=== PATIENT | female | born 1995 | race African-American/Black ===

== ENCOUNTER 2017-01-21 10:24 | Outpatient (CLI) | payer MEDICAID ==
--- NOTE | 2017-01-21 11:33 | L&D Progress Notes ---
PROGRESS NOTES Datetime Report Generated by CPN: 01/21/2017 11:33 PROGRESS NOTE Comment: 21 yo presents with hip and pubic pain EDC 01/26/17 EGA 39 weeks unable to retrieve [facility] records at this time per pt - IUGR is supposed to be doing biweekly NST history of asthma/ smoking daily THC use- reports quitting with noncompliant FHTs reactive abdomen nontender no ctxs noted/ mild irritability +symphis pubic and hip pain precautions reviewed advised pt to continue regular appts.- reports difficulty with transportation/ easier to come to [facility] discussed d/c home rtc this week FETUS A Monitoring: External US Variability: Moderate 6-25bpm Accelerations: 15X15 : 39.2 SIGNATURE SIGNATURE: [id number] Assignment: Naveed Bocanegra MD Signature: with User ID: [email or web address] : with User ID: [email or web address]
[2017-01-21 11:48] LABS: APPEARANCE,URINE SLIGHTLY-CLOUDY; BILIRUBIN,URINE NEGATIVE (NEGATIVE); GLUCOSE, URINE NEGATIVE (NEGATIVE); KETONES,URINE NEGATIVE (NEGATIVE); LEUKOCYTE ESTERASE,URINE TRACE (NEGATIVE); NITRITE,URINE NEGATIVE (NEGATIVE); PROTEIN,URINE NEGATIVE (NEGATIVE); URINE SPECIFIC GRAVITY 1.013
[2017-01-21 12:06] LABS: URINE BARBITURATES SCREEN NEGATIVE; URINE METHADONE SCREEN NEGATIVE; URINE OPIATES LOW NEGATIVE; URINE PHENCYCLIDINE SCREEN NEGATIVE
== END 2017-01-21 11:32 | disposition home or self-care (01) ==
LOC: LC 10:24
PROVIDERS: ATTEND Obstetrics & Gynecology
PROC: 4A1HXCZ Monitoring of Products of Conception, Cardiac Rate, External Approach (ICD-10-PCS; principal; 2017-01-21)
DX: O47.1 False labor at or after 37 completed weeks of gestation (principal); M25.559 Pain in unspecified hip; O99.89 Other specified diseases and conditions complicating pregnancy, childbirth and the puerperium; R10.2 Pelvic and perineal pain; Z3A.39 39 weeks gestation of pregnancy
CPT/HCPCS: 59025; 80307; 81005

== ENCOUNTER 2017-01-23 16:19 | Inpatient (IN) | payer MEDICAID ==
[2017-01-23] MEDS ORDERED: OXYTOCIN/NORMAL SALINE 1,000 ML IV PRN (16:50)
[2017-01-23] MEDS ORDERED: MAG HYDROX/AL HYDROX/SIMETH SUSP 30 ML UDCUP PO PRN (16:50)
[2017-01-23] MEDS ORDERED: RINGERS SOLUTION,LACTATED 300 ML IV ONE (16:50)
[2017-01-23] MEDS ORDERED: RINGERS SOLUTION,LACTATED 1,000 ML IV PRN (16:50)
[2017-01-23] MEDS ORDERED: DINOPROSTONE 10 MG VAGINAL INSERT.SR PV ONE (16:50)
[2017-01-23] MEDS ORDERED: ZOLPIDEM TARTRATE 5 MG TABLET PO PRN (16:50)
[2017-01-23] MEDS ORDERED: ACETAMINOPHEN 325 MG TABLET PO PRN (16:50)
[2017-01-23 17:12] LABS: APPEARANCE,URINE CLEAR; BILIRUBIN,URINE NEGATIVE (NEGATIVE); GLUCOSE, URINE NEGATIVE (NEGATIVE); KETONES,URINE NEGATIVE (NEGATIVE)
[2017-01-23 17:13] LABS: URINE SPECIFIC GRAVITY 1.014
[2017-01-23 17:14] LABS: LEUKOCYTE ESTERASE,URINE NEGATIVE (NEGATIVE); NITRITE,URINE NEGATIVE (NEGATIVE); PROTEIN,URINE NEGATIVE (NEGATIVE); UROBILINOGEN,URINE NEGATIVE mg/dL (<2.0)
[2017-01-23 17:29] LABS: ABSOLUTE EOSINOPHILS # (AUTO) 0.1 10^3/uL (0.0-0.6); ABSOLUTE LYMPHOCYTES (AUTO) 3.1 10^3/uL (0.5-4.7); ABSOLUTE MONOCYTES (AUTO) 0.6 10^3/uL (0.1-1.4); ABSOLUTE NEUT (AUTO) 7.4 10^3/uL (1.7-8.2); BASOPHILS % (AUTO) 0.4 % (0-2); EOSINOPHILS % (AUTO) 0.6 % (0-6); HEMATOCRIT 33.3 % (36.0-47.0); HEMOGLOBIN 11.2 g/dL (12.0-15.5); HGB HCT DIFFERENCE 0.3; LYMPHOCYTES % (AUTO) 27.9 % (13-45); MEAN CORPUSCULAR HEMOGLOBIN 32.1 pg (27.0-33.4); MEAN CORPUSCULAR HGB CONC 33.8 g/dL (32.0-36.0); MEAN CORPUSCULAR VOLUME 95 fl (80-97); RED CELL DISTRIBUTION WIDTH 13.5 % (11.5-14.0); SEGMENTED NEUTROPHILS % (AUTO) 66.1 % (42-78); WHITE BLOOD COUNT 11.2 10^3/uL (4.0-10.5)
[2017-01-23 17:31] LABS: URINE BARBITURATES SCREEN NEGATIVE; URINE METHADONE SCREEN NEGATIVE; URINE OPIATES LOW NEGATIVE; URINE PHENCYCLIDINE SCREEN NEGATIVE
[2017-01-24] MEDS ORDERED: DINOPROSTONE 10 MG VAGINAL INSERT.SR ONE (01:27)
[2017-01-24] MEDS ORDERED: ACETAMINOPHEN 325 MG TABLET ONE ×2 (10:15→16:07)
[2017-01-24] MEDS ORDERED: OXYTOCIN/NORMAL SALINE 0 UNIT/0 ML RTUINJ ONE (14:16)
[2017-01-24] MEDS ORDERED: EPHEDRINE SULFATE INJ 50 MG/1 ML AMPULE ONE (16:38)
[2017-01-24] MEDS ORDERED: FENTANYL/BUPIVACAINE/NS/PF 200 MCG/100 ML RTUINJ EPI ONE (16:38)
[2017-01-24] MEDS ORDERED: PHENYLEPHRINE HCL INJ/PF 10 MG/1 ML SDV ONE (16:38)
[2017-01-24] MEDS ORDERED: FENTANYL CITRATE INJ/PF 100 MCG/2 ML AMPUL ONE (16:38)
[2017-01-24] MEDS ORDERED: BUPIVACAINE HCL 0.25 % INJ/PF (2.5 MG/1 ML) 30 ML VIAL ONE (16:38)
[2017-01-24] MEDS ORDERED: LIDOCAINE 2% INJ-PF (20 MG/ML) 10 ML AMPUL ONE (17:36)
[2017-01-24] MEDS ORDERED: MISOPROSTOL 0.2 MG TABLET ONE (18:08)
[2017-01-24] MEDS ORDERED: OXYTOCIN/NORMAL SALINE 20 UNIT/1,000 ML RTUINJ ONE (18:08)
[2017-01-24] MEDS ORDERED: LIDOCAINE 1% INJ-PF (10 MG/ML) 30 ML SDV ONE (18:08)
[2017-01-24] MEDS ORDERED: DIBUCAINE 1% OINTMENT 28 GM TP PRN (19:01)
[2017-01-24] MEDS ORDERED: BENZOCAINE/MENTHOL AEROSOL SPRAY 56 ML TOP PRN (19:01)
[2017-01-24] MEDS ORDERED: OXYTOCIN/NORMAL SALINE 1,000 ML IV PRN (19:01)
[2017-01-24] MEDS ORDERED: MEASLES,MUMPS&RUBELLA VACC/PF 0.5 ML VIAL SUBCUT PRN (19:01)
[2017-01-24] MEDS ORDERED: ZOLPIDEM TARTRATE 5 MG TABLET PO PRN (19:01)
[2017-01-24] MEDS ORDERED: DIPH/PERTUSS(ACELL)/TETANUS VAC/PF 0.5 ML SYR (>=10YO) IM PRN (19:01)
[2017-01-24] MEDS ORDERED: ONDANSETRON 4 MG TAB.RAPDIS ONE (19:13)
--- NOTE | 2017-01-24 20:09 | Delivery Summary ---
Del Sum A-C Datetime Report Generated by CPN: 01/24/2017 20:09 DELIVERY PERSONNEL DELIVERY PERSONNEL: [phone] Delivery Doctor:: Kimberly Wetzel MD Anesthesiologist:: Lesia Pastor MD Labor and Delivery Nurse:: Aimee Wetzel RNspray machine operator Nurse:: PARISH Cast Front Maker Lockstitch/DETECTIVE CHIEF: ST Rebecca Additional Personnel: : Sandro Murray RN MATERNAL INFORMATION Delivery Anesthesia: Epidural Medications After Delivery: Pitocin Bolus-Please Comment; Pitocin Drip 20 Units/1000ml NSS Meds After Delivery Comment: Pitocin 20 units in 1 L NS bolusing per order Estimated Blood Loss (ml): 150 Maternal Complications: None LABOR SUMMARY EDC: 01/26/2017 00:00 No. Babies in Womb: 1 Attempted: No Labor Anesthesia: Epidural LABOR INFORMATION Reason for Induction: Intrauterine Growth Retardation Onset of Labor: 01/24/2017 16:30 Complete Dilatation: 01/24/2017 18:07 Cervical Ripening Agents: Cervidil Oxytocin: Induction Group B Beta Strep: negative Antibiotics # of Doses: 0 Antibiotics Time of Last Dose: n/a Name of Antibiotic Given: n/a Steroids Given: None Reason Steroids Not Administered: Not Applicable MEMBRANES Membranes Rupture Method: Spontaneous Rupture of Membranes: 01/24/2017 18:04 Length of Rupture (hr): 0.17 Amniotic Fluid Color: Clear Amniotic Fluid Amount: Small Amniotic Fluid Odor: Normal STAGES OF LABOR Stage 1 hr: 1 Stage 1 min: 37 Stage 2 hr: 0 Stage 2 min: 7 Stage 3 hr: 0 Stage 3 min: 7 Total Time in Labor hr: 1 Total Time in Labor min: 51 VAGINAL DELIVERY Episiotomy: None Laceration Extension: N/A Laceration Type: None Laceration Repair: Not Applicable Sponge Count Correct: N/A Sharps Count Correct: N/A CSECTION DELIVERY Primary Indication: N/A Secondary Indication: N/A CSection Incidence: N/A Labor: N/A Elective: N/A CSection Incision: N/A BABY A INFORMATION Infant Delivery Date/Time: 01/24/2017 18:14 Method of Delivery: Vaginal Born in Route : No : N/A Forceps: N/A Vacuum Extraction: N/A Shoulder Dystocia : No PRESENTATION/POSITION BABY A Presentation: Cephalic Cephalic Presentation: Vertex Vertex Position: Left Occipital Anterior Breech Presentation: N/A PLACENTA INFORMATION BABY A Placenta Delivery Time : 01/24/2017 18:21 Placenta Method of Delivery: Expressed Placenta Status: Delivered SCORES BABY A Heart Rate 1 min: >100 bpm Resp Effort 1 min: Good Cry Reflex Irritability 1 min: Cough or Sneeze or Pulls Away Muscle Tone 1 min: Active Motion Color 1 min: Body [place], Extremities Blue Resuscitation Effort 1 min: Tactile Stimulation SCORE 1 MIN: 9 Heart Rate 5 min: >100 bpm Resp Effort 5 min: Good Cry Reflex Irritability 5 min: Cough or Sneeze or Pulls Away Muscle Tone 5 min: Active Motion Color 5 min: Body [place], Extremities Blue Resuscitation Effort 5 min: Tactile Stimulation SCORE 5 MIN: 9 INFORMATION BABY A Gestational Age at Delivery: 39.5 Gestational Status: Full Term- 39- 40.6 Weeks Outcome : Liveborn Condition : Stable Sex: Female IDENTIFICATION BABY A Infant Verification Date/Time: 01/24/2017 18:18 ID Band Number: [id number] Mother's Name Verified: Yes Infant RN Verifying : AShar Gold RN A. Aldo RN WEIGHT/LENGTH BABY A Infant Birthweight (gm): 2235 Weight (lb): 4 Weight (oz): 15 Length (in): 18.00 Infant Length (cm): 45.72 CORD INFORMATION BABY A No. Cord Vessels: 3 Nuchal Cord : N/A Cord Blood Taken: Yes-For Eval (Mom's Blood Type - or O+) Infant Suction: Mouth; Nose ASSESSMENT BABY A Infant Complications: None Physical Findings at Delivery: Other Physical Findings- Other: right abdominal abnormality noted by RN, infant taken to nursery Respirations: Appears Normal Skin to Skin: Yes Skin to Skin Time (min): 1 Herbicide Service Sales Representative/ALS Called : No Care By: PARISH Long Transferred To: Nursery BABY B INFORMATION : N/A
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
[2017-01-24] MEDS: IBUPROFEN 800 MG TABLET PO SCH (21:55)
[2017-01-24] MEDS: ACETAMINOPHEN WITH CODEINE #3 TABLET PO PRN (23:36)
[2017-01-25] MEDS: ACETAMINOPHEN WITH CODEINE #3 TABLET PO PRN ×2 (04:36→10:30)
[2017-01-25] MEDS: IBUPROFEN 800 MG TABLET PO SCH ×3 (06:11→21:22)
[2017-01-25 07:51] LABS: HEMOGLOBIN 11.4 g/dL (12.0-15.5); HGB HCT DIFFERENCE 0.2; MEAN CORPUSCULAR HEMOGLOBIN 32.2 pg (27.0-33.4); MEAN CORPUSCULAR HGB CONC 33.4 g/dL (32.0-36.0); MEAN CORPUSCULAR VOLUME 96 fl (80-97); RED BLOOD COUNT 3.53 10^6/uL (3.72-5.28); RED CELL DISTRIBUTION WIDTH 13.4 % (11.5-14.0); WHITE BLOOD COUNT 12.7 10^3/uL (4.0-10.5)
[2017-01-25] MEDS: SENNOSIDES/DOCUSATE 8.6-50 MG 1 EACH TABLET PO SCH (10:31)
[2017-01-25] MEDS: DOCUSATE SODIUM 100 MG CAPSULE PO SCH ×2 (10:32→17:55)
[2017-01-25] MEDS: FERROUS SULFATE 325 MG TABLET PO SCH ×2 (10:32→17:55)
[2017-01-25] MEDS: PRENATAL VITAMIN W-O CA NO5/FE FUMARATE/FA CAPSULE PO SCH (10:32)
--- NOTE | 2017-01-25 10:44 | PDOC PROGRESS REPORT ---
Subjective-OB Subjective: Post Delivery Day: 21 year old. Denies any needs at this time Physical Exam (OB) Vital Signs: Temp Pulse Resp BP Pulse Ox 98.0 F 51 L 16 105/59 L 100 01/25/17 08:40 01/25/17 08:40 01/25/17 08:40 01/25/17 08:40 01/25/17 08:40 Intake & Output 01/24/17 01/25/17 01/26/17 06:59 06:59 06:59 Weight 83.9 kg - Lochia Lochia Amount: Small 10-25 ml Lochia Color: Rubra/Red - Abdomen Description: Soft, Round Hernia Present: No Bowel Sounds: Normoactive Flatus Presence: Present Stool: Yes Fundal Description: Firm, Midline Fundal Height: u/u - u/2 Objective-Diagnostic Laboratory: 01/25/17 07:19 01/25/17 07:19 WBC 12.7 H RBC 3.53 L Hgb 11.4 L Hct 34.0 L MCV 96 MCH 32.2 MCHC 33.4 RDW 13.4 Plt Count 193
[2017-01-25] MEDS: FAMOTIDINE 20 MG TABLET PO SCH (21:23)
[2017-01-26] MEDS: ACETAMINOPHEN WITH CODEINE #3 TABLET PO PRN ×2 (02:02→07:11)
[2017-01-26] MEDS: IBUPROFEN 800 MG TABLET PO SCH ×2 (05:20→13:07)
[2017-01-26 08:52] VITALS: BP 113/72
[2017-01-26] MEDS: DOCUSATE SODIUM 100 MG CAPSULE PO SCH (09:51)
[2017-01-26] MEDS: SENNOSIDES/DOCUSATE 8.6-50 MG 1 EACH TABLET PO SCH (09:51)
[2017-01-26] MEDS: FAMOTIDINE 20 MG TABLET PO SCH (09:52)
[2017-01-26] MEDS: PRENATAL VITAMIN W-O CA NO5/FE FUMARATE/FA CAPSULE PO SCH (09:52)
[2017-01-26] MEDS: FERROUS SULFATE 325 MG TABLET PO SCH (09:52)
--- NOTE | 2017-01-26 10:56 | PDOC PROGRESS REPORT ---
Subjective-OB Subjective: Post Delivery Day: 21 year old. Complaining of some discomfort w eating and in med upper abdomen- no radiating pain. Has Zantac at home. Ready for discharge. Physical Exam (OB) Vital Signs: Temp Pulse Resp BP Pulse Ox 98.2 F 57 L 18 113/72 99 01/26/17 08:21 01/26/17 08:21 01/26/17 08:21 01/26/17 08:21 01/26/17 08:21 - PIH/Pre-Eclampsia Headache: Absent Visual Changes: No - Lochia Lochia Amount: Scant < 10 ml Lochia Color: Rubra/Red - Abdomen Description: Soft, Round Hernia Present: No Bowel Sounds: Normoactive Flatus Presence: Present Stool: No Fundal Description: Firm, Midline Fundal Height: u/u - u/2 Objective-Diagnostic Laboratory: 01/25/17 07:19
--- NOTE | 2017-01-26 11:01 | PDOC DISCHARGE SUMMARY ---
Final Diagnosis Discharge Date: 01/26/17 - Final Diagnosis (1) History of asthma Is this a current diagnosis for this admission?: Yes (2) IUGR (intrauterine growth retardation), delivered, current hospitalization Is this a current diagnosis for this admission?: Yes (3) Smoker Is this a current diagnosis for this admission?: Yes (4) THC abuse in Is this a current diagnosis for this admission?: Yes (5) Delivery normal Is this a current diagnosis for this admission?: Yes (6) Is this a current diagnosis for this admission?: Yes Discharge Data - Discharge Medication Home Medications: Ranitidine HCl [Zantac 150 mg Tablet] 150 mg PO BID 04/01/14 Vit/Iron Fumarate/FA [ Tablet] 1 tab PO DAILY 01/23/17 Ibuprofen [Motrin 800 mg Tablet] 800 mg PO Q8 #30 tablet 01/26/17 Gestational Age: 39.5 wks Reason(s) for Admission: Induction of Labor, Other Admission Note: IUGR Procedures: Ultrasound Intrapartum Procedure(s): Spontaneous Vaginal Delivery - Data Baby 1 Female at 1 minute: 9 at 5 minutes: 9 Weight: 2.24 kg Home with Mother: Yes Complications: No - Diagnosis Test Laboratory: Temp Pulse Resp BP Pulse Ox 98.2 F 57 L 18 113/72 99 01/26/17 08:21 01/26/17 08:21 01/26/17 08:21 01/26/17 08:21 01/26/17 08:21 01/23/17 01/23/17 01/25/17 16:50 17:10 07:19 RBC 3.50 L 3.53 L Hgb 11.2 L 11.4 L Hct 33.3 L 34.0 L Urine Opiates Screen NEGATIVE - Discharge information/Instructions Discharge Activity: Activity As Tolerated, Balance Activity w/Rest, Pelvic Rest , Slowly Increase Activity, No tub bath Discharge Diet: Regular Disposition: HOME, SELF-CARE Follow up with: [facility] in: 4, Weeks
== END 2017-01-26 13:22 | disposition home or self-care (01) | DRG 775 ==
LOC: LR 16:19 → 2S 01-24 20:35
PROVIDERS: ADMIT Obstetrics & Gynecology; ATTEND Obstetrics & Gynecology
PROC: 10E0XZZ Delivery of Products of Conception, External Approach (ICD-10-PCS; principal; 2017-01-23)
PROC: 3E033VJ Introduction of Other Hormone into Peripheral Vein, Percutaneous Approach (ICD-10-PCS; 2017-01-23)
PROC: 4A1HXCZ Monitoring of Products of Conception, Cardiac Rate, External Approach (ICD-10-PCS; 2017-01-23)
DX: O36.5930 Maternal care for other known or suspected poor fetal growth, third trimester, not applicable or unspecified (principal); O99.324 Drug use complicating childbirth; O99.52 Diseases of the respiratory system complicating childbirth; J45.909 Unspecified asthma, uncomplicated; O99.334 Smoking (tobacco) complicating childbirth; F17.210 Nicotine dependence, cigarettes, uncomplicated; F12.10 Cannabis abuse, uncomplicated; Z88.2 Allergy status to sulfonamides; Z3A.39 39 weeks gestation of pregnancy; Z37.0 Single live birth
CPT/HCPCS: 36415; 80307; 81005; 82962; 85025; 85027; 86592; 86850; 86900; 86901; 88307; 90715; G0480; J2370; J2590; J3010; J3490; S0119

== ENCOUNTER 2017-03-16 16:33 | Emergency (ER) | payer MEDICAID ==
[2017-03-16 16:58] VITALS: BP 149/86
[2017-03-16] MEDS ORDERED: OXYCODONE-ACETAMINOPHEN 5-325 MG TABLET PO ONE (17:50)
[2017-03-16] MEDS ORDERED: DIPH/PERTUSS(ACELL)/TETANUS VAC/PF 0.5 ML SYR (>=10YO) IM ONE (17:50)
--- NOTE | 2017-03-16 19:09 | RADIOLOGY REPORT (SQ) ---
EXAM DESCRIPTION: HAND RIGHT 3 VIEWS COMPLETED DATE/TIME: 03/16/2017 6:50 pm REASON FOR STUDY: crush injury with laceration on the 2nd digit COMPARISON: None. EXAM PARAMETERS: NUMBER OF VIEWS: Three views. TECHNIQUE: AP, lateral and oblique radiographic images acquired of the right hand. LIMITATIONS: None. FINDINGS: MINERALIZATION: Normal. BONES: No acute fracture or dislocation. No worrisome bone lesions. JOINTS: No effusions. SOFT TISSUES: No soft tissue swelling. No foreign body. OTHER: No other significant finding. IMPRESSION: NEGATIVE STUDY OF THE RIGHT HAND. NO RADIOGRAPHIC EVIDENCE OF ACUTE INJURY. TECHNICAL DOCUMENTATION: JOB ID: [id number] [employer]- All Rights Reserved
--- NOTE | 2017-03-16 20:14 | ER Document Report ---
ED Wound - General Chief Complaint: Laceration Stated Complaint: FINGER LACERATION Time Seen by Provider: 03/16/17 17:42 Notes: Patient is a 21-year-old female with laceration to the right hand of the second digit. Patient admits to pain and difficulty moving the distal end of her finger. Tetanus is not up-to-date . TRAVEL OUTSIDE OF THE [place] IN LAST 30 DAYS: No - Related Data Allergies/Adverse Reactions: sulfamethoxazole [From Bactrim] Allergy (Mild, Verified 03/16/17 16:58) Hives trimethoprim [From Bactrim] Allergy (Mild, Verified 03/16/17 16:58) Hives Past Medical History - Social History Smoking Status: Unknown if Ever Smoked Family History: Reviewed & Not Pertinent Renal/ Medical History: Denies: Hx Peritoneal Dialysis - Immunizations Hx Diphtheria, Pertussis, Tetanus Vaccination: No Hx Pneumococcal Vaccination: 04/23/14 Review of Systems - Review of Systems Constitutional: No symptoms reported Skin: See HPI Neurological/Psychological: No symptoms reported -: Yes All other systems reviewed and negative Physical Exam - Vital signs Vitals: Temp Pulse Resp BP Pulse Ox 98.5 F 53 L 16 149/86 H 99 03/16/17 16:57 03/16/17 16:57 03/16/17 16:57 03/16/17 16:57 03/16/17 16:57 - General General appearance: Appears well, Alert In distress: None - Cardiovascular Pulses: Normal: Radial Normal capillary refill: Yes - Extremities Forearm: Normal, Nontender Wrist: Normal, Nontender Hand: Tender - at wound, Tendon deficit - of the distal phalanx of the second digit on the left ahnd. No: Deformity, Dislocation, Instability - Skin Skin irregularity: Laceration - palmar surface of the left 2nd digit over the 2nd phalanx. ROM intact except for no movement of the distal phalanx. otherwise AROM in the rest of her hand intact without difficulty Course - Re-evaluation Re-evalutation: 03/16/17 21:00 Patient is a 18-year-old female hemodynamic stable, no distress afebrile. No evidence of fracture on x-ray. Wound is irrigated with Betadine saline at the bedside wound closed with 6-0 nylon with 5 interrupted sutures. Patient still not able to fully flex her distal phalanx of the left second digit. Patient has been educated on follow-up with orthopedics regarding tendon injury. Patient expressed understanding. Tetanus status updated. - Vital Signs Vital signs: Temp Pulse Resp BP Pulse Ox 98.5 F 53 L 16 149/86 H 99 03/16/17 16:57 03/16/17 16:57 03/16/17 16:57 03/16/17 16:57 03/16/17 16:57 - Diagnostic Test Radiology reviewed: Image reviewed, Reports reviewed Procedures - Laceration/Wound Repair Left 2nd digit Wound length (cm): 4 Wound's Depth, Shape: Linear Laceration pre-procedure: Sterile PPE donned Anesthetic type: 1% Lidocaine Volume Anesthetic (mLs): 4 Irrigated w/ Saline (mLs): 150 Wound Repaired With: Sutures Suture Size/Type: 6:0, Nylon Number of Sutures: 5 Layer Closure?: No Post-procedure wound care: Sterile dressing applied Post-procedure NV exam normal: Yes Complications: No Discharge - Discharge Clinical Impression: Laceration, Tendon injury Condition: Good Disposition: HOME, SELF-CARE Instructions: Antibiotic Ointment Protection ([facility]), Laceration Care ([facility]), Tetanus Immunization Given ([facility]), Soap Cleansing ([facility]), Tendon Laceration Referral ([facility]) Additional Instructions: Please contact your primary care physician for referral to see Dr. Newman hand surgeon in orthopedics for your tendon injury. Referrals: CARINE NEWMAN DO [ACTIVE STAFF] - Follow up tomorrow
== END 2017-03-16 20:45 | disposition home or self-care (01) ==
LOC: ER 16:33
PROC: 0HQFXZZ Repair Right Hand Skin, External Approach (ICD-10-PCS; principal; 2017-03-16)
DX: S61.210A Laceration without foreign body of right index finger without damage to nail, initial encounter (principal); W20.8XXA Other cause of strike by thrown, projected or falling object, initial encounter; Y93.89 Activity, other specified; Z88.1 Allergy status to other antibiotic agents; Z23 Encounter for immunization
CPT/HCPCS: 90471; 90715; 99283

== ENCOUNTER 2018-06-23 00:08 | Inpatient (IN) | payer MEDICAID ==
[2018-06-23] MEDS ORDERED: RINGERS SOLUTION,LACTATED 1,000 ML IV PRN (00:33)
[2018-06-23] MEDS ORDERED: DINOPROSTONE 10 MG VAGINAL INSERT.SR PV PRN (00:33)
[2018-06-23] MEDS ORDERED: ACETAMINOPHEN 325 MG TABLET PO PRN ×2 (00:35→12:38)
[2018-06-23] MEDS ORDERED: MAG HYDROX/AL HYDROX/SIMETH SUSP 30 ML UDCUP PO PRN (00:35)
[2018-06-23] MEDS ORDERED: RINGERS SOLUTION,LACTATED 300 ML IV ONE (00:50)
[2018-06-23] MEDS ORDERED: DINOPROSTONE 10 MG VAGINAL INSERT.SR ONE (00:55)
[2018-06-23] MEDS ORDERED: ZOLPIDEM TARTRATE 5 MG TABLET PO ONE (01:00)
[2018-06-23 01:03] LABS: ABSOLUTE EOSINOPHILS # (AUTO) 0.1 10^3/uL (0.0-0.6); ABSOLUTE LYMPHOCYTES (AUTO) 3.4 10^3/uL (0.5-4.7); ABSOLUTE MONOCYTES (AUTO) 0.7 10^3/uL (0.1-1.4); ABSOLUTE NEUT (AUTO) 5.4 10^3/uL (1.7-8.2); BASOPHILS % (AUTO) 0.4 % (0-2); EOSINOPHILS % (AUTO) 0.6 % (0-6); HEMATOCRIT 28.8 % (36.0-47.0); HEMOGLOBIN 10.5 g/dL (12.0-15.5); LYMPHOCYTES % (AUTO) 36.1 % (13-45); MEAN CORPUSCULAR HEMOGLOBIN 34.4 pg (27.0-33.4); MEAN CORPUSCULAR HGB CONC 36.4 g/dL (32.0-36.0); MEAN CORPUSCULAR VOLUME 94 fl (80-97); MONOCYTES % (AUTO) 6.9 % (3-13); PLATELET COUNT 199 10^3/uL (150-450); RED BLOOD COUNT 3.05 10^6/uL (3.72-5.28); RED CELL DISTRIBUTION WIDTH 12.5 % (11.5-14.0); TOTAL CELLS COUNTED % (AUTO) 100 %; WHITE BLOOD COUNT 9.6 10^3/uL (4.0-10.5)
[2018-06-23 01:05] LABS: APPEARANCE,URINE CLOUDY; BILIRUBIN,URINE NEGATIVE (NEGATIVE); COLOR,URINE YELLOW; GLUCOSE, URINE NEGATIVE (NEGATIVE); KETONES,URINE NEGATIVE (NEGATIVE); LEUKOCYTE ESTERASE,URINE SMALL (NEGATIVE); NITRITE,URINE NEGATIVE (NEGATIVE); PROTEIN,URINE NEGATIVE (NEGATIVE); URINE SPECIFIC GRAVITY 1.013
[2018-06-23 01:21] LABS: URINE AMPHETAMINES SCREEN NEGATIVE; URINE BARBITURATES SCREEN NEGATIVE; URINE BENZODIAZEPINES SCREEN NEGATIVE; URINE COCAINE SCREEN NEGATIVE; URINE METHADONE SCREEN NEGATIVE; URINE PHENCYCLIDINE SCREEN NEGATIVE
[2018-06-23 01:30] LABS: URINE MARIJUANA (THC) SCREEN UNCONFIRMED POSITIVE
--- NOTE | 2018-06-23 05:06 | Admission Physical ---
Datetime Report Generated by CPN: 06/23/2018 05:05 CURRENT ADMISSION Chief Complaint: Scheduled Induction of Labor Indication for Induction: IUGR Admit Impression : Term, Intrauterine ; Induction of Labor Admit Plan: Admit to Unit; Initiate Labor Induction Protocol ALLERGIES Medication Allergies: Yes Medication Allergies: sulfamethoxazole/KS/Hives (06/23/2018); trimethoprim/KS/Hives (06/23/2018) Latex: No Latex Allergies Food Allergies: N/A Environmental Allergies: N/A OBSTETRICAL HISTORY EDC: 06/28/2018 00:00 : 3 Para: 2 Term: 2 : 0 SAB: 0 IAB: 0 Ectopic: 0 Livin Cesareans: 0 VBACs: 0 Multiple Births: 0 Gestational Diabetes: No Rh Sensitization: No Incompetent Cervix: No VASU: No Infertility: No ART Treatment: No Uterine Anomaly: No IUGR: No Hx Previous C/S: No Macrosomia: No Hx Loss/Stillborn: No PIH: No Hx : No Placenta Previa/Abruption: No Depression/PP Depression: No PTL/PROM: No Post Hemorrhage: Yes Current Procedures: Ultrasound; NST Obstetrical History Comments: G1- 2013 baby girl at 40 weeks 6lbs 9oz, epidural, PPH (no transfusion required) G2- 2016 baby girl at 39 weeks 4lbs 15oz, epidural, SGA G3- current SEE RECORDS Alcohol: No Marijuana : Yes Cocaine: No Other Illicit Drugs: No Cigarettes: Current Everyday Smoker. [id number] MEDICAL HISTORY Diabetes: No Blood Transfusion: No Pulmonary Disease (Asthma, TB): Yes Breast Disease: No Hypertension: No Defensive Line Coach Surgery: No Heart Disease: No Hosp/Surgery: No Autoimmune Disorder: No Anesthetic Complications: No Kidney Disease: No Abnormal Pap Smear: No Neuro/Epilepsy: No Psychiatric Disorders: Yes Other Medical Diseases: No Hepatitis/Liver Disease: No Significant Family History: No Varicosities/Phlebitis: No Trauma/Violence : No Thyroid Dysfunction: No Medical History Comments: asthma, anemia, PICA- eats cornstarch INFECTIOUS HISTORY Gonorrhea: No Genital Herpes: No Chlamydia: No Tuberculosis: No Syphilis: No Hepatitis: No HIV/AIDS Exposure: No Rash or Viral Illness: No HPV: Yes Infectious History Comments: ASCUS pap 2016 PHYSICAL EXAM General: Normal HEENT: Normal Neurologic: Normal Thyroid: Deferred Heart: Normal Lungs: Normal Breast: Deferred Back: Normal Abdomen: Normal Genitourinary Exam: Normal Extremities: Normal DTRs: Normal Pelvic Type: Adequate Vital Signs: Reviewed VAGINAL EXAM Dilatation: 1 Effacement: 50 Station: -3 Contraction Comments: irreg MEMBRANES Membranes: Intact FETUS A EGA: 39.2 Monitoring: External US FHR- Baseline: 145 Variability: Moderate 6-25bpm (Annotations: Data stored by CPN on behalf of user) Accelerations: 15X15 Decelerations: None FHR Category: Category I Estimated Weight (gm): 2512 Presentation: Vertex Admit Comment: 23yo at 39+2ega with IUGR at 8% (5#9oz on 06/09/2018) presents for IOL. cvx 1-2 and will begin cervidil - placed at 0100. H/o Anemia with PICA and Hematology consult. h/o IUGR with G2. H/o PPH with no transfusion. Asthma - using albuterol daily at [facility] transfer. +THC and tobacco. GBS negative. +THC daily. She desires BTL. Admit and anticipate . pelvic proven to 6#9oz. PLANS FOR LABOR AND DELIVERY Labor and Delivery: None Pain Management: Epidural Feeding Preference: Breast Benefit of Breast Feed Discussed: Yes Circumcision: Yes INFORMED CONSENT Informed Consent Obtained: Vaginal Delivery; Induction of Labor; Risks, Benefits and Alternatives Discussed Signature: with User ID: [email or web address]
[2018-06-23] MEDS ORDERED: ACETAMINOPHEN 325 MG TABLET ONE (07:16)
[2018-06-23] MEDS ORDERED: MISOPROSTOL 0.2 MG TABLET ONE (10:09)
[2018-06-23] MEDS ORDERED: OXYTOCIN 10 UNIT/ML VIAL ONE (10:09)
[2018-06-23] MEDS ORDERED: OXYTOCIN/NORMAL SALINE 20 UNIT/1,000 ML RTUINJ ONE (10:09)
[2018-06-23] MEDS ORDERED: LIDOCAINE 1% INJ-PF (10 MG/ML) 30 ML SDV ONE (10:09)
[2018-06-23] MEDS ORDERED: EPHEDRINE SULFATE INJ 50 MG/1 ML AMPULE ONE (10:10)
[2018-06-23] MEDS ORDERED: PHENYLEPHRINE HCL INJ/PF 10 MG/1 ML SDV ONE (10:10)
[2018-06-23] MEDS ORDERED: FENTANYL CITRATE INJ/PF 100 MCG/2 ML AMPUL ONE (10:10)
[2018-06-23] MEDS ORDERED: FENTANYL/BUPIVACAINE/NS/PF 300 MCG/150 ML RTUINJ EPI ONE (10:15)
[2018-06-23] MEDS ORDERED: BUPIVACAINE HCL 0.5 % INJ/PF 30 ML SDV ONE (10:15)
[2018-06-23] MEDS ORDERED: PROMETHAZINE HCL 25 MG TABLET PO PRN (12:38)
[2018-06-23] MEDS ORDERED: PROMETHAZINE HCL INJ 25 MG/1 ML VIAL IV PRN (12:38)
[2018-06-23] MEDS ORDERED: PSEUDOEPHEDRINE HCL 30 MG TABLET PO PRN (12:38)
[2018-06-23] MEDS ORDERED: PROMETHAZINE HCL 25 MG SUPP.RECT PR PRN (12:38)
[2018-06-23] MEDS ORDERED: MAGNESIUM HYDROXIDE SUSP 30 ML UDCUP PO PRN (12:38)
[2018-06-23] MEDS ORDERED: BENZOCAINE/MENTHOL AEROSOL SPRAY 56 ML TOP PRN (12:38)
[2018-06-23] MEDS ORDERED: GLYCERIN/WITCH HAZEL LEAF 1 EACH MED..PAD TP PRN (12:38)
[2018-06-23] MEDS ORDERED: DIBUCAINE 1% OINTMENT 28 GM TP PRN (12:38)
[2018-06-23] MEDS ORDERED: NA PHOS,M-B/NA PHOS,DI-BA (ADULT) 133 ML ENEMA PR PRN (12:38)
[2018-06-23] MEDS ORDERED: OXYTOCIN/NORMAL SALINE 20 UNIT/1,000 ML RTUINJ IV PRN (12:38)
[2018-06-23] MEDS ORDERED: ACETAMINOPHEN WITH CODEINE #3 TABLET PO PRN (12:38)
[2018-06-23] MEDS ORDERED: MEASLES,MUMPS&RUBELLA VACC/PF 0.5 ML VIAL SUBCUT PRN (12:38)
[2018-06-23] MEDS ORDERED: DIPHENHYDRAMINE HCL 25 MG CAPSULE PO PRN (12:38)
[2018-06-23] MEDS ORDERED: DIPH/PERTUSS(ACELL)/TETANUS VAC/PF 0.5 ML SYR (>=10YO) IM PRN (12:38)
[2018-06-23] MEDS ORDERED: IBUPROFEN 800 MG TABLET ONE (13:32)
[2018-06-23] MEDS ORDERED: ACETAMINOPHEN WITH CODEINE #3 TABLET ONE (13:32)
[2018-06-23] MEDS: ACETAMINOPHEN WITH CODEINE #3 TABLET PO PRN ×2 (13:33→20:53)
[2018-06-23] MEDS: IBUPROFEN 800 MG TABLET PO SCH ×2 (13:33→21:15)
--- NOTE | 2018-06-23 16:39 | Delivery Summary ---
Del Sum A-C Datetime Report Generated by CPN: 06/23/2018 16:39 DELIVERY PERSONNEL DELIVERY PERSONNEL: [id number] Delivery Doctor:: Maryan Irvin CNM Labor and Delivery Nurse:: Kathy Muniz RN Labor and Delivery Nurse:: Aisha Lau RN Clinical Research Nurse Coordinator:: Aimee Wetzel RN Nursery Nurse:: Mirlande Kirk RN Resident Program Specialist/DRAPERY CUTTER: Katia Castle, PURCHASING INTERN MATERNAL INFORMATION Delivery Anesthesia: Epidural Medications After Delivery: Pitocin Bolus-Please Comment; Pitocin Drip 20 Units/1000ml NSS Meds After Delivery Comment: Pitocin 20 units in 1 L NS bolusing per order Maternal Complications: None Provider Comments: pt progressed to c/c/2 with urge to push, started pushing and quickly delivered a viable baby boy in straight op position with vigorous respiratory effort and cry spontaneously at . Baby placed on maternal abdomen, cord allowed to stop pulsating then clamped x2 and cut by FOB (3vc noted). Placenta delivered spontaneously intact with a marginal cord insertion and sent to lab. Fundus firm and minimal bleeding. Vaginal and perineal inspection revealed no lacerations but 2 abrasions as noted. Mother and baby remain skin to skin and bonding at this time. LABOR SUMMARY EDC: 06/28/2018 00:00 No. Babies in Womb: 1 Attempted: No Labor Anesthesia: Epidural LABOR INFORMATION Reason for Induction: Intrauterine Growth Retardation Onset of Labor: 06/23/2018 07:30 Complete Dilatation: 06/23/2018 11:41 Cervical Ripening Agents: Cervidil Oxytocin: N/A Group B Beta Strep: Negative Antibiotics # of Doses: 0 Antibiotics Time of Last Dose: n/a Name of Antibiotic Given: n/a Steroids Given: None Reason Steroids Not Administered: Not Applicable MEMBRANES Membranes Rupture Method: Artificial Rupture of Membranes: 06/23/2018 11:41 Length of Rupture (hr): 0.60 Amniotic Fluid Color: Clear Amniotic Fluid Amount: Scant Amniotic Fluid Odor: Normal STAGES OF LABOR Stage 1 hr: 4 Stage 1 min: 11 Stage 2 hr: 0 Stage 2 min: 36 Stage 3 hr: 0 Stage 3 min: 6 Total Time in Labor hr: 4 Total Time in Labor min: 53 VAGINAL DELIVERY Episiotomy: None Laceration #1: None Laceration Extension #1: N/A Other Laceration: perineal and right labial abrasion Laceration Repair: Not Applicable Laceration Repair Note: n/a, hemostatic, no need for repair Sponge Count Correct: N/A Sharps Count Correct: N/A CSECTION DELIVERY Primary Indication: N/A Secondary Indication: N/A CSection Incidence: N/A Labor: N/A Elective: N/A CSection Incision: N/A BABY A INFORMATION Delivery Date/Time: 06/23/2018 12:17 Method of Delivery: Vaginal Born in Route : No : N/A Forceps: N/A Vacuum Extraction: N/A Shoulder Dystocia : No PRESENTATION/POSITION BABY A Presentation: Cephalic Cephalic Presentation: Vertex Vertex Position: OP Breech Presentation: N/A PLACENTA INFORMATION BABY A Placenta Delivery Time : 06/23/2018 12:23 Placenta Method of Delivery: Spontaneous Placenta Status: Delivered SCORES BABY A Heart Rate 1 min: >100 bpm Resp Effort 1 min: Good Cry Reflex Irritability 1 min: Cough or Sneeze or Pulls Away Muscle Tone 1 min: Active Motion Color 1 min: Blue/Pale Resuscitation Effort 1 min: Tactile Stimulation SCORE 1 MIN: 8 Heart Rate 5 min: >100 bpm Resp Effort 5 min: Good Cry Reflex Irritability 5 min: Cough or Sneeze or Pulls Away Muscle Tone 5 min: Active Motion Color 5 min: Body [place], Extremities Blue Resuscitation Effort 5 min: N/A SCORE 5 MIN: 9 INFANT INFORMATION BABY A Gestational Age at Delivery: 39.2 Gestational Status: Full Term- 39- 40.6 Weeks Outcome : Liveborn Infant Condition : Stable Sex: Male IDENTIFICATION BABY A Verification Date/Time: 06/23/2018 13:20 ID Band Number: [id number] Mother's Name Verified: Yes Infant RN Verifying : JSHANNON, RN Additional Verifying Personnel: Emily KIRK, BRIGITTE WEIGHT/LENGTH BABY A Infant Birthweight (gm): 2500 Infant Weight (lb): 5 Infant Weight (oz): 8 Infant Length (in): 18.50 Length (cm): 46.99 CORD INFORMATION BABY A No. Cord Vessels: 3 Nuchal Cord : N/A Cord Blood Taken: Yes-For Eval (Mom's Blood Type - or O+) Suction: None ASSESSMENT BABY A Infant Complications: Multiple Late Decels; Multiple Variable Decels; Other Complications- Other: 1 PROLONGED VARIABLE Physical Findings at Delivery: Within Normal Limits Infant Respirations: Appears Normal Skin to Skin: Yes Skin to Skin Time (min): 45 Armature Winder Repair Helper/ALS Called : No Infant Care By: Emily Kirk RN Transferred To: [place] [facility] BABY B INFORMATION : N/A SIGNATURES Assignment: Kimberly Wetzel MD Signature: with User ID: Candi : with User ID: [email or web address]
[2018-06-23] MEDS: FERROUS SULFATE 325 MG TABLET PO SCH (18:25)
[2018-06-23] MEDS: DOCUSATE SODIUM 100 MG CAPSULE PO SCH (18:26)
[2018-06-23] MEDS: FAMOTIDINE 20 MG TABLET PO SCH (21:15)
[2018-06-23] MEDS ORDERED: ZOLPIDEM TARTRATE 5 MG TABLET PO SCH (22:00)
[2018-06-24] MEDS: ACETAMINOPHEN WITH CODEINE #3 TABLET PO PRN ×2 (02:35→12:14)
[2018-06-24] MEDS: IBUPROFEN 800 MG TABLET PO SCH ×3 (05:10→21:05)
[2018-06-24 07:33] LABS: HEMATOCRIT 27.3 % (36.0-47.0); HEMOGLOBIN 9.6 g/dL (12.0-15.5); MEAN CORPUSCULAR HEMOGLOBIN 33.8 pg (27.0-33.4); MEAN CORPUSCULAR HGB CONC 35.3 g/dL (32.0-36.0); MEAN CORPUSCULAR VOLUME 96 fl (80-97); PLATELET COUNT 171 10^3/uL (150-450); RED BLOOD COUNT 2.85 10^6/uL (3.72-5.28); RED CELL DISTRIBUTION WIDTH 12.9 % (11.5-14.0); WHITE BLOOD COUNT 12.8 10^3/uL (4.0-10.5)
[2018-06-24] MEDS: FAMOTIDINE 20 MG TABLET PO SCH ×2 (09:25→21:04)
[2018-06-24] MEDS: FERROUS SULFATE 325 MG TABLET PO SCH ×2 (09:25→17:31)
[2018-06-24] MEDS: PRENATAL VITAMIN W DHA CAPSULE PO SCH (09:25)
[2018-06-24] MEDS: SENNOSIDES/DOCUSATE 8.6-50 MG 1 EACH TABLET PO SCH (09:25)
[2018-06-24] MEDS: DOCUSATE SODIUM 100 MG CAPSULE PO SCH ×2 (09:25→17:31)
--- NOTE | 2018-06-24 11:41 | PDOC PROGRESS REPORT ---
Subjective-OB Progress Note for:: 06/24/18 Subjective: reports bleeding slowing, pain controlled with current meds, denies needs Physical Exam (OB) Vital Signs: Temp Pulse Resp BP Pulse Ox 97.9 F 55 L 16 126/69 H 100 06/24/18 08:19 06/24/18 08:19 06/24/18 08:19 06/24/18 08:19 06/24/18 08:19 Intake & Output 06/23/18 06/24/18 06/25/18 06:59 06:59 06:59 Weight 83.7 kg - Abdomen Description: Soft Hernia Present: No Fundal Description: Firm, Midline Fundal Height: u/u - u/2 - Abdominal Distension: No distension Tenderness: Nontender - Extremities Lower extremities: Nimo's sign - neg Calf: Normal, Nontender Objective-Diagnostic Laboratory: 06/24/18 06:56 06/24/18 06:56 WBC 12.8 H RBC 2.85 L Hgb 9.6 L Hct 27.3 L MCV 96 MCH 33.8 H MCHC 35.3 RDW 12.9 Plt Count 171 Assessment and Plan(PN) - Assessment and Plan (1) Normal vaginal delivery Is this a current diagnosis for this admission?: Yes - Time Spent with Patient Time with patient: Less than 15 minutes Medications reviewed and adjusted accordingly: Yes - Disposition Anticipated Discharge: Home Within: within 24 hours
[2018-06-25] MEDS: ACETAMINOPHEN WITH CODEINE #3 TABLET PO PRN (02:17)
[2018-06-25] MEDS: IBUPROFEN 800 MG TABLET PO SCH ×2 (05:54→13:21)
[2018-06-25] MEDS: PRENATAL VITAMIN W DHA CAPSULE PO SCH (11:07)
[2018-06-25] MEDS: FERROUS SULFATE 325 MG TABLET PO SCH (11:07)
[2018-06-25] MEDS: SENNOSIDES/DOCUSATE 8.6-50 MG 1 EACH TABLET PO SCH (11:07)
[2018-06-25] MEDS: FAMOTIDINE 20 MG TABLET PO SCH (11:07)
[2018-06-25] MEDS: DOCUSATE SODIUM 100 MG CAPSULE PO SCH (11:07)
--- NOTE | 2018-06-25 11:51 | PDOC PROGRESS REPORT ---
Subjective-OB Progress Note for:: 06/25/18 Subjective: Ready to go home Physical Exam (OB) Vital Signs: Temp Pulse Resp BP Pulse Ox 97.8 F 51 L 18 129/70 H 100 06/25/18 07:32 06/25/18 07:32 06/25/18 07:32 06/25/18 07:32 06/25/18 07:32 - PIH/Pre-Eclampsia DTR's: 2 + Clonus: Negative Headache: Absent Epigastric Pain: No Visual Changes: No - Lochia Lochia Amount: Scant < 10 ml Lochia Color: Rubra/Red - Abdomen Description: Soft, Round Hernia Present: No Bowel Sounds: Normoactive Flatus Presence: Present Stool: No Fundal Description: Firm Fundal Height: u/u - u/2 Objective-Diagnostic Laboratory: 06/24/18 06:56 Assessment and Plan(PN) - Time Spent with Patient Medications reviewed and adjusted accordingly: Yes - Disposition Anticipated Discharge: Home
--- NOTE | 2018-06-25 12:00 | PDOC DISCHARGE SUMMARY ---
Final Diagnosis Discharge Date: 06/25/18 - Final Diagnosis (1) Anemia Is this a current diagnosis for this admission?: Yes (2) History of pica Is this a current diagnosis for this admission?: Yes (3) Intrauterine growth restriction affecting care of mother Is this a current diagnosis for this admission?: Yes (4) Normal vaginal delivery Is this a current diagnosis for this admission?: Yes (5) THC use in Is this a current diagnosis for this admission?: Yes Discharge Data - Discharge Medication Prescriptions: Docusate Sodium [Colace 100 mg Capsule] 100 mg PO BID #60 capsule Ferrous Sulfate [Feosol 325 mg Tablet] 325 mg PO BID #60 tablet Ibuprofen [Motrin 800 mg Tablet] 800 mg PO Q8 #30 tablet Home Medications: Vit/Iron Fum/Folic AC [ Tablet] 1 tab PO DAILY 01/23/17 Docusate Sodium [Colace 100 mg Capsule] 100 mg PO BID #60 capsule 06/25/18 Ferrous Sulfate [Feosol 325 mg Tablet] 325 mg PO BID #60 tablet 06/25/18 Ibuprofen [Motrin 800 mg Tablet] 800 mg PO Q8 #30 tablet 06/25/18 Gestational Age: 39.2 wks Reason(s) for Admission: Induction of Labor Procedures: Ultrasound Intrapartum Procedure(s): Spontaneous Vaginal Delivery - Data Baby 1 Male at 1 minute: 8 at 5 minutes: 9 Weight: 2.495 kg Home with Mother: Yes Complications: No - Diagnosis Test Laboratory: Temp Pulse Resp BP Pulse Ox 97.8 F 51 L 18 129/70 H 100 06/25/18 07:32 06/25/18 07:32 06/25/18 07:32 06/25/18 07:32 06/25/18 07:32 06/23/18 06/23/18 06/24/18 00:17 00:49 06:56 RBC 3.05 L 2.85 L Hgb 10.5 L 9.6 L Hct 28.8 L 27.3 L Urine Opiates Screen NEGATIVE - Discharge information/Instructions Discharge Activity: Activity As Tolerated, Balance Activity w/Rest, Pelvic Rest , Slowly Increase Activity, No tub bath Discharge Diet: Regular Disposition: HOME, SELF-CARE Follow up with: [facility] in: 4, Weeks
[2018-06-25 12:46] VITALS: BP 126/69
== END 2018-06-25 15:00 | disposition home or self-care (01) | DRG 806 ==
LOC: LR 00:08 → 2S 15:41
PROVIDERS: ADMIT Student in an Organized Health Care Education/Training Program; ATTEND Student in an Organized Health Care Education/Training Program
PROC: 10E0XZZ Delivery of Products of Conception, External Approach (ICD-10-PCS; principal; 2018-06-23)
PROC: 10907ZC Drainage of Amniotic Fluid, Therapeutic from Products of Conception, Via Natural or Artificial Opening (ICD-10-PCS; 2018-06-23)
PROC: 4A1HXCZ Monitoring of Products of Conception, Cardiac Rate, External Approach (ICD-10-PCS; 2018-06-23)
PROC: 3E0P7VZ Introduction of Hormone into Female Reproductive, Via Natural or Artificial Opening (ICD-10-PCS; 2018-06-23)
PROC: 3E02340 Introduction of Influenza Vaccine into Muscle, Percutaneous Approach (ICD-10-PCS; 2018-06-25)
PROC: 3E0234Z Introduction of Serum, Toxoid and Vaccine into Muscle, Percutaneous Approach (ICD-10-PCS; 2018-06-25)
DX: O36.5930 Maternal care for other known or suspected poor fetal growth, third trimester, not applicable or unspecified (principal); O99.324 Drug use complicating childbirth; Z37.0 Single live birth; F12.90 Cannabis use, unspecified, uncomplicated; O70.0 First degree perineal laceration during delivery; O99.334 Smoking (tobacco) complicating childbirth; O76 Abnormality in fetal heart rate and rhythm complicating labor and delivery; F17.200 Nicotine dependence, unspecified, uncomplicated; O99.344 Other mental disorders complicating childbirth; F50.89 Other specified eating disorder; O99.52 Diseases of the respiratory system complicating childbirth; J45.909 Unspecified asthma, uncomplicated; O99.02 Anemia complicating childbirth; D64.9 Anemia, unspecified; Z3A.39 39 weeks gestation of pregnancy; Z23 Encounter for immunization; Z88.2 Allergy status to sulfonamides
CPT/HCPCS: 36415; 80307; 81005; 82962; 85025; 85027; 86592; 86850; 86900; 86901; 88307; 90471; 90686; 90715; G0008; J2370; J2590; J3010; J3490

== ENCOUNTER 2018-11-26 03:43 | Emergency (ER) | payer MEDICAID ==
[2018-11-26] MEDS ORDERED: ONDANSETRON HCL INJ/PF 4 MG/2 ML SDV IV ONE ×2 (04:47→07:46)
[2018-11-26] MEDS ORDERED: NORMAL SALINE 1000 ML 1,000 ML IV ONE ×2 (05:10→05:50)
[2018-11-26 05:17] LABS: ABSOLUTE EOSINOPHILS # (AUTO) 0.1 10^3/uL (0.0-0.6); ABSOLUTE LYMPHOCYTES (AUTO) 1.2 10^3/uL (0.5-4.7); ABSOLUTE MONOCYTES (AUTO) 0.5 10^3/uL (0.1-1.4); ABSOLUTE NEUT (AUTO) 14.1 10^3/uL (1.7-8.2); BASOPHILS % (AUTO) 0.1 % (0-2); EOSINOPHILS % (AUTO) 0.8 % (0-6); HEMATOCRIT 42.7 % (36.0-47.0); LYMPHOCYTES % (AUTO) 7.6 % (13-45); MEAN CORPUSCULAR HEMOGLOBIN 33.5 pg (27.0-33.4); MEAN CORPUSCULAR HGB CONC 35.2 g/dL (32.0-36.0); MEAN CORPUSCULAR VOLUME 95 fl (80-97); MONOCYTES % (AUTO) 3.1 % (3-13); PLATELET COUNT 307 10^3/uL (150-450); RED BLOOD COUNT 4.48 10^6/uL (3.72-5.28); RED CELL DISTRIBUTION WIDTH 12.5 % (11.5-14.0); SEGMENTED NEUTROPHILS % (AUTO) 88.4 % (42-78); TOTAL CELLS COUNTED % (AUTO) 100 %; WHITE BLOOD COUNT 15.9 10^3/uL (4.0-10.5)
[2018-11-26] MEDS ORDERED: FAMOTIDINE 20 MG TABLET PO ONE (05:20)
[2018-11-26] MEDS ORDERED: SUCRALFATE 1 GM TABLET PO ONE (05:20)
--- NOTE | 2018-11-26 05:21 | ER Document Report ---
ED GI/ - General Chief Complaint: Nausea/Vomiting/Diarrhea Stated Complaint: VOMITING Time Seen by Provider: 11/26/18 05:11 Notes: Patient is a 23-year-old female that comes to the emergency department for chief complaint of vomiting, diarrhea, and mid abdominal pain. Symptoms started last night, she vomited multiple times, had about 5 episodes of diarrhea, unsure of blood in the diarrhea. She was exposed to a coworker with similar symptoms. She denies recent travel, recent antibiotics, raw food. She denies any surgeries or diagnosed medical problems. LMP within the past month. TRAVEL OUTSIDE OF THE [place] IN LAST 30 DAYS: No - Related Data Allergies/Adverse Reactions: sulfamethoxazole [From Bactrim] Allergy (Mild, Verified 11/26/18 03:48) Hives trimethoprim [From Bactrim] Allergy (Mild, Verified 11/26/18 03:48) Hives Past Medical History - General Information source: Patient - Social History Smoking Status: Never Smoker Frequency of alcohol use: Social Drug Abuse: None Lives with: Family Family History: Reviewed & Not Pertinent - Medical History Medical History: Negative Renal/ Medical History: Denies: Hx Peritoneal Dialysis Surgical Hx: Negative - Immunizations Immunizations up to date: Yes Hx Diphtheria, Pertussis, Tetanus Vaccination: Yes Hx Pneumococcal Vaccination: 04/23/14 Review of Systems - Review of Systems Constitutional: No symptoms reported EENT: No symptoms reported Cardiovascular: No symptoms reported Respiratory: No symptoms reported Gastrointestinal: See HPI Genitourinary: No symptoms reported Female Genitourinary: No symptoms reported Musculoskeletal: No symptoms reported Skin: No symptoms reported Hematologic/Lymphatic: No symptoms reported Neurological/Psychological: No symptoms reported Physical Exam - Vital signs Vitals: Temp Pulse Resp BP Pulse Ox 97.7 F 81 18 148/94 H 98 11/26/18 03:55 11/26/18 03:55 11/26/18 03:55 11/26/18 03:55 11/26/18 03:55 - Notes Notes: GENERAL: Alert, interacts well. No acute distress. HEAD: Normocephalic, atraumatic. EYES: Pupils equal, round, and reactive to light. Extraocular movements intact. ENT: Oral mucosa very dry, tongue midline. Oropharynx unremarkable. Airway patent. Nares patent, no nasal septal hematoma, TM's intact. NECK: Full range of motion. Supple. Trachea midline. LUNGS: Clear to auscultation bilaterally, no wheezes, rales, or rhonchi. No respiratory distress. HEART: Regular rate and rhythm. No murmur ABDOMEN: Very mild generalized tenderness, nonspecific, no guarding. Non- distended. Bowel sounds present in all 4 quadrants. GENITOURINARY: Deferred EXTREMITIES: Moves all 4 extremities spontaneously. No edema, normal radial and dorsalis pedis pulses bilaterally. No cyanosis. BACK: no cervical, thoracic, lumbar midline tenderness. No saddle anesthesia, normal distal neurovascular exam. NEUROLOGICAL: Alert and oriented x3. Normal speech. [cranial nerves II through XII grossly intact]. PSYCH: Normal affect, normal mood. SKIN: Warm, dry, normal turgor. No rashes or lesions noted. Course - Re-evaluation Re-evalutation: Patient has dry mucous membranes, mild generalized abdominal tenderness on evaluation. She states she has pain in her upper abdomen is asking for something for it. She is also asking to drink. She was given Pepcid, Carafate, IV Zofran. She was also given IV fluids. I reevaluated patient. She states that after the Carafate, Pepcid, and Zofran her symptoms completely resolved. She has been drinking for some juice and then fluids without any difficulty. She denies any current symptoms. Vital signs unremarkable. CBC shows leukocytosis with elevation of neutrophils. Nonspecific given patient's vomiting and diarrhea with suspected dehydration. Chemistry shows low bicarbonate. Chemistry is nonspecific otherwise. Urinalysis shows elevated specific gravity and ketones consistent with dehydration. Discussed with patient. Based on her benign exam, vomiting diarrhea, sick contacts, I suspect this is viral. Discussed treatment of this at home, follow- up, and return precautions. Patient states understanding and agreement. - Vital Signs Vital signs: Temp Pulse Resp BP Pulse Ox 97.7 F 81 18 148/94 H 98 11/26/18 03:55 11/26/18 03:55 11/26/18 03:55 11/26/18 03:55 11/26/18 03:55 - Laboratory Result Diagrams: 11/26/18 05:06 11/26/18 05:06 Laboratory results interpreted by me: 11/26/18 11/26/18 11/26/18 05:06 05:06 06:26 WBC 15.9 H MCH 33.5 H Seg Neutrophils % 88.4 H Lymphocytes % 7.6 L Absolute Neutrophils 14.1 H Chloride 109 H Carbon Dioxide 18 L Glucose 177 H Total Protein 8.3 H Urine Protein 100 H Urine Ketones 80 H Urine Blood SMALL H Urine Urobilinogen 2.0 H Discharge - Discharge Clinical Impression: Vomiting and diarrhea, Dehydration Condition: Stable Disposition: HOME, SELF-CARE Additional Instructions: Your evaluation shows dehydration. This is most likely viral and should resolve with time. Continue hydrating at home, take Zofran for nausea, famotidine for inflammation of the upper abdominal tract. Start with bland foods and slowly progress. This is contagious so use contact precautions. Follow with primary care. Return if you worsen including uncontrolled vomiting, severe abdominal pain, developing fever, or any other concerning or worsening symptoms. Prescriptions: Famotidine [Pepcid 20 mg Tablet] 20 mg PO BID #14 tablet Ondansetron [Zofran Odt 4 mg Tablet] 1 - 2 tab PO Q4H PRN #15 tab.rapdis PRN Reason: For Nausea/Vomiting Forms: Return to Work
[2018-11-26 05:39] LABS: ALANINE AMINOTRANSFERASE 15 U/L (9-52); ALBUMIN 4.9 g/dL (3.5-5.0); ALKALINE PHOSPHATASE 115 U/L (38-126); ANION GAP 14 (5-19); ASPARTATE AMINO TRANSFERASE 30 U/L (14-36); BILIRUBIN,DIRECT 0.4 mg/dL (0.0-0.4); BILIRUBIN,TOTAL 0.8 mg/dL (0.2-1.3); BLOOD UREA NITROGEN 16 mg/dL (7-20); CALCIUM 9.9 mg/dL (8.4-10.2); CARBON DIOXIDE 18 mmol/L (22-30); CHLORIDE 109 mmol/L (98-107); GLUCOSE 177 mg/dL (75-110); POTASSIUM 3.8 mmol/L (3.6-5.0); TOTAL PROTEIN 8.3 g/dL (6.3-8.2)
[2018-11-26 06:44] LABS: APPEARANCE,URINE SLIGHTLY-CLOUDY; BILIRUBIN,URINE NEGATIVE (NEGATIVE); COLOR,URINE AMBER; GLUCOSE, URINE NEGATIVE (NEGATIVE); KETONES,URINE 80 mg/dL (NEGATIVE); LEUKOCYTE ESTERASE,URINE NEGATIVE (NEGATIVE); NITRITE,URINE NEGATIVE (NEGATIVE); PROTEIN,URINE 100 mg/dL (NEGATIVE); URINE SPECIFIC GRAVITY 1.031
[2018-11-26 08:32] VITALS: BP 158/76
== END 2018-11-26 08:53 | disposition home or self-care (01) ==
LOC: ER 03:43
DX: R11.2 Nausea with vomiting, unspecified (principal); R19.7 Diarrhea, unspecified; R10.9 Unspecified abdominal pain; Z88.3 Allergy status to other anti-infective agents
CPT/HCPCS: 96376; 99284; 96361; 96374; 36415; 85025; 81025; 80053; 81001; J3490 ×2; J2405; J7030